=== PATIENT | male | born 1945 | race Caucasian/White ===

== ENCOUNTER 2024-04-20 11:30 | Emergency (ER) | payer OTHER ==
[~2024-04-20] VITALS: Ht 170.2 cm; Wt 68.0 kg
[2024-04-20 11:30] VITALS: BP_SYST 197; PULSE 95; RESP 19; TEMP 97.2; O2SAT 100
[2024-04-20] MEDS: IBUPROFEN 800 MG TABLET PO ONE (12:03)
[2024-04-20] MEDS: HYDROcodone/ACETAMIN 10-325 MG TAB PO ONE (12:04)
[2024-04-20 13:30] VITALS: BP_SYST 177; PULSE 80; O2SAT 96
[2024-04-20] MEDS ORDERED: IBUP-1969 PO (13:53)
[2024-04-20] MEDS ORDERED: HYDR-3917 PO (13:53)
== END 2024-04-20 14:40 | disposition home or self-care (01) ==
LOC: SED 11:30
DX: M54.50 Low back pain, unspecified (principal); R10.9 Unspecified abdominal pain
CPT/HCPCS: 71045; 99284